=== PATIENT | male | born 1940 | race Hispanic/Latino ===

== ENCOUNTER → 2022-01-25 | Outpatient (CLI) | payer MEDICARE | END | disposition home or self-care (01) | LOC: RAH 13:58 | PROVIDERS: ATTEND Internal Medicine Critical Care Medicine | DX: J98.11 Atelectasis (principal); J84.10 Pulmonary fibrosis, unspecified; K44.9 Diaphragmatic hernia without obstruction or gangrene | CPT/HCPCS: 71250 ==

== ENCOUNTER → 2022-08-18 | Outpatient (CLI) | payer MEDICARE | END | disposition home or self-care (01) | LOC: LAB 08:28 | PROVIDERS: ATTEND Internal Medicine Gastroenterology | DX: K62.89 Other specified diseases of anus and rectum (principal) | CPT/HCPCS: 36415; 83630; 86677; 87046; 87177; 87324; 87329 ==